=== PATIENT | female | born 1980 | race Caucasian/White ===

== ENCOUNTER 2020-04-03 13:35 | Emergency (ER) | payer SELFPAY ==
[~2020-04-03] VITALS: Ht 170.2 cm; Wt 100.0 kg
[2020-04-03 17:20] VITALS: BP 178/101
[2020-04-03] MEDS ORDERED: PRED50TA PO (18:18)
--- NOTE | 2020-04-03 18:19 | PHYS DOC ---
Past Medical History Past Medical History: No Pertinent History Additional Past Medical Histor: PARTIAL HYSTERECTOMY, CERVIX, LITHROTRIPSY, CYSTOSCOPY, HEMALAMINECTOMY 201 (BRANDON HILL APRN) Past Surgical History: Lumbar Laminectomy (BRANDON HILL APRN) Smoking Status: Never Smoker Alcohol Use: None (BRANDON HILL APRN) General Adult EDM: Chief Complaint: SKIN PROBLEM HPI: HPI: Patient is a 39 year old female who presents the ED today complaining of chronic hives that come and go. She states this episode began 3 days ago. She states she normally comes to the ED and is given a shot of steroids. Patient denies any new exposures. She states she is already taking Zyrtec and Benadryl. (BRANDON HILL APRN) Review of Systems: Review of Systems: Constitutional: Denies fever or chills. [] Musculoskeletal: Denies back pain or joint pain. [] Integument: Reports hives Neurologic: Denies headache, focal weakness or sensory changes. [] Psychiatric: Denies depression or anxiety. [] (BRADNON HILL APRN) Heart Score: Risk Factors: Risk Factors: DM, Current or recent (<one month) smoker, HTN, HLP, family history of CAD, obesity. Risk Scores: Score 0 - 3: 2.5% MACE over next 6 weeks - Discharge Home Score 4 - 6: 20.3% MACE over next 6 weeks - Admit for Clinical Observation Score 7 - 10: 72.7% MACE over next 6 weeks - Early Invasive Strategies (BRANDON HILL APRN) Current Medications: Current Medications Medications (Trade) Dose Ordered Sig/Guille Start Time Stop Time Status Last Admin Dose Admin Dexamethasone Sodium Phosphate (Decadron) 10 mg 1X ONCE 04/03/20 17:45 04/03/20 17:46 UNV Methylprednisolone Sodium Succinate (SOLU-Medrol 125MG VIAL) 125 mg 1X ONCE 04/03/20 17:45 04/03/20 17:46 UNV (BRANDON HILL APRN) Physical Exam: PE: Constitutional: Well developed, well nourished, no acute distress, non-toxic appearance. [] ] Skin: Warm, dry, lower extremities with mild amount of erythematous hives. Back: No tenderness, no CVA tenderness. [] Extremities: No tenderness, no cyanosis, no clubbing, ROM intact, no edema. [] Neurologic: Alert and oriented X 3, normal motor function, normal sensory function, no focal deficits noted. [] Psychologic: Affect normal, judgement normal, mood normal. [] (BRANDON HILL APRN) Current Patient Data: Vital Signs: Vital Signs Date Time Temp Pulse Resp B/P (MAP) Pulse Ox O2 Delivery O2 Flow Rate FiO2 04/03/20 17:20 97.8 64 178/101 (126) 100 Room Air 97.8 04/03/20 15:20 18 (BRANDON HILL APRN) EKG: EKG: [] (BRANDON HILL APRN) Radiology/Procedures: Radiology/Procedures: [] (BRANDON HILL APRN) Course & Med Decision Making: Course & Med Decision Making Pertinent Labs and Imaging studies reviewed. (See chart for details) This is a 39-year-old female patient presenting to the ED today with hives that are chronic but reoccurred 3 days ago. Patient was given Decadron IM. She is already on Zyrtec and Benadryl. Discharge to home. She states she follows up with her PCP for this chronic hives. (BRANDON HILL APRN) Dragon Disclaimer: Dragon Disclaimer: This electronic medical record was generated, in whole or in part, using a voice recognition dictation system. (BRANDON HILL APRN) Departure Departure Impression: Primary Impression: Hives Disposition: HOME, SELF-CARE Condition: STABLE Referrals: TIAN FONG DO (PCP) follow up next week Patient Instructions: Hives, [id number] Additional Instructions: Please continue your normal hives medicines at home. Take the prescribed prednisone until completed. Follow-up with your doctor in the course of next week. Scripts Prednisone (PREDNISONE) 50 Mg Tablet 1 TAB PO DAILY, #5 TAB Prov: BRANDON HILL APRN 04/03/20 Justicifation of Admission Dx: Justifications for Admission: Justification of Admission Dx: N/A (BRANDON HILL APRN) Attending Signature Attending Signature I was personally available for consult in the emergency department. I have reviewed the chart and agree with the documentation as recorded by the AARON including the assessment, treatment plan and disposition. (TANQUARY,RHEABRANDON TEMPLETON APRN Apr 03, 2020 18:19 RHEA LOPEZ DO Apr 04, 2020 06:30
[2020-04-03] MEDS ORDERED: methylPREDNISolone SOD SUCC PF 125 MG/2 ML VIAL. IV ONE (18:45)
[2020-04-03] MEDS ORDERED: DEXAMETHASONE SOD PHOS 20 MG/5 ML VIAL. IM ONE (18:45)
== END 2020-04-03 18:55 | disposition home or self-care (01) ==
LOC: ER 13:35
DX: L50.9 Urticaria, unspecified (principal); L53.9 Erythematous condition, unspecified; Z90.710 Acquired absence of both cervix and uterus; Z90.89 Acquired absence of other organs; Z98.890 Other specified postprocedural states
CPT/HCPCS: 96372; 99283; J1100

== ENCOUNTER 2020-06-30 23:30 | Emergency (ER) | payer BC ==
[~2020-06-30] VITALS: Ht 170.2 cm; Wt 100.0 kg
[~2020-06-30 23:30] MED LIST: PRED50TA PO
[2020-06-30 23:46] VITALS: BP 125/81
[2020-07-01] MEDS ORDERED: TRAM-48 PO (00:07)
[2020-07-01] MEDS ORDERED: CYCL10TA2 PO (00:07)
--- NOTE | 2020-07-01 00:08 | PHYS DOC ---
Past Medical History Past Medical History: No Pertinent History, Kidney Stone Additional Past Medical Histor: PARTIAL HYSTERECTOMY, CERVIX, LITHROTRIPSY, CYSTOSCOPY, HEMALAMINECTOMY 201 Past Surgical History: Hysterectomy, Lumbar Laminectomy Smoking Status: Never Smoker Alcohol Use: None General Adult EDM: Chief Complaint: BACK PAIN OR INJURY HPI: HPI: Patient is a 40 year old female presents with a chief complaint of back pain. Patient states yesterday morning she slipped and fell down a flight of stairs. Patient states she injured her lower back and left hip. On exam patient has some bilateral paraspinal L4-L5 tenderness there is no step-off deformity is midline. Patient has some tenderness in her left buttocks. She has no saddle anesthesia or loss of bowel or bladder. Patient ambulated into the ER with a steady gait. Patient has taken [id number] medications with minimal relief. Review of Systems: Review of Systems: Constitutional: Denies fever or chills. [] Eyes: Denies change in visual acuity. [] HENT: Denies nasal congestion or sore throat. [] Respiratory: Denies cough or shortness of breath. [] Cardiovascular: Denies chest pain or edema. [] GI: Denies abdominal pain, nausea, vomiting, bloody stools or diarrhea. [] : Denies dysuria. [] Musculoskeletal: Positive back pain Integument: Denies rash. [] Neurologic: Denies headache, focal weakness or sensory changes. [] Endocrine: Denies polyuria or polydipsia. [] Lymphatic: Denies swollen glands. [] Psychiatric: Denies depression or anxiety. [] Heart Score: Risk Factors: Risk Factors: DM, Current or recent (<one month) smoker, HTN, HLP, family history of CAD, obesity. Risk Scores: Score 0 - 3: 2.5% MACE over next 6 weeks - Discharge Home Score 4 - 6: 20.3% MACE over next 6 weeks - Admit for Clinical Observation Score 7 - 10: 72.7% MACE over next 6 weeks - Early Invasive Strategies Allergies: Allergies: Allergies Coded Allergies Type Severity Reaction Last Updated Verified Penicillins Allergy Unknown 04/03/20 Yes Physical Exam: PE: Constitutional: Well developed, well nourished, no acute distress, non-toxic appearance. [] HENT: Normocephalic, atraumatic, bilateral external ears normal, oropharynx moist, no oral exudates, nose normal. [] Eyes: PERRLA, EOMI, conjunctiva normal, no discharge. [] Neck: Normal range of motion, no tenderness, supple, no stridor. [] Cardiovascular:Heart rate regular rhythm, no murmur [] Lungs & Thorax: Bilateral breath sounds clear to auscultation [] Abdomen: Bowel sounds normal, soft, no tenderness, no masses, no pulsatile masses. [] Skin: Warm, dry, no erythema, no rash. [] Back: Tenderness to palpation paraspinal bilateral L4-L5 no step-off or deformities L4-L5, Extremities: No tenderness, no cyanosis, no clubbing, ROM intact, no edema. [] Neurologic: Alert and oriented X 3, normal motor function, normal sensory function, no focal deficits noted. [] Psychologic: Affect normal, judgement normal, mood normal. [] Current Patient Data: Vital Signs: Vital Signs Date Time Temp Pulse Resp B/P (MAP) Pulse Ox O2 Delivery O2 Flow Rate FiO2 06/30/20 23:46 97.4 90 18 125/81 (96) 98 Room Air 97.4 EKG: EKG: [] Radiology/Procedures: Radiology/Procedures: [] Course & Med Decision Making: Course & Med Decision Making Pertinent Labs and Imaging studies reviewed. (See chart for details) [] Dragon Disclaimer: Dragon Disclaimer: This electronic medical record was generated, in whole or in part, using a voice recognition dictation system. Departure Departure Impression: Primary Impression: Back pain Disposition: 01 DC HOME SELF CARE/HOMELESS Condition: STABLE Referrals: TIAN FONG DO (PCP) Patient Instructions: Back Pain, Adult Scripts Cyclobenzaprine Hcl (CYCLOBENZAPRINE HCL) 10 Mg Tablet 10 MG PO TID, #20 TAB Prov: DANIEL BOYD DO 07/01/20 Tramadol Hcl (ULTRAM) 50 Mg Tablet 1 TAB PO PRN Q6HRS PRN for pain MDD 4 Tablet(s) for 7 Days, #28 TAB 0 Refills Prov: DANIEL BOYD DO 07/01/20 DANIEL BOYD DO Jul 01, 2020 00:08
== END 2020-07-01 00:10 | disposition home or self-care (01) ==
LOC: ER 23:30
DX: M54.5 Low back pain (principal); Z90.710 Acquired absence of both cervix and uterus; Z90.89 Acquired absence of other organs; Z87.442 Personal history of urinary calculi; Z98.890 Other specified postprocedural states; Z88.8 Allergy status to other drugs, medicaments and biological substances
CPT/HCPCS: 99283